=== PATIENT | female | born 1980 | race American Indian/Alaskan Native ===

== ENCOUNTER 2017-06-29 18:03 | Emergency (ER) | payer OTHER ==
[~2017-06-29] VITALS: Ht 162.6 cm; Wt 74.8 kg
[2017-06-29] MEDS ORDERED: VENTOLIN HFA18 GM INH ×2 (18:18)
[2017-06-29] MEDS ORDERED: PREDNISONE20 MG PO ×2 (19:36)
[2017-06-29] MEDS ORDERED: ZITHROMAX250 MG PO ×2 (19:36)
[2017-06-29] MEDS ORDERED: ALBUTEROL2.5 MG/3 M INH ×2 (19:36)
== END 2017-06-29 19:49 | disposition home or self-care (01) ==
LOC: ED 18:03
DX: J20.9 Acute bronchitis, unspecified (principal); J45.909 Unspecified asthma, uncomplicated; Z79.899 Other long term (current) drug therapy
CPT/HCPCS: 71020; 94640; 99283; J7512

== ENCOUNTER 2017-06-30 17:38 | Inpatient (IN) | payer OTHER ==
[~2017-06-30] VITALS: Ht 162.6 cm; Wt 82.1 kg
[~2017-06-30 17:38] MED LIST: ALBUTEROL2.5 MG/3 M INH; PREDNISONE20 MG PO; VENTOLIN HFA18 GM INH; ZITHROMAX250 MG PO
--- NOTE | 2017-06-30 22:31 | NUR ---
PT ARRIVED TO ROOM 127 AT 2105. SOB WITH EXERTION, HOWEVER PT CONTINUES TO TALK FREQUENTLY. C/O OF BURNING PAIN MIDCHEST RANGE, PAIN INCREASES WITH COUGHING, HOWEVER COUGH NO LONGER PRESENT. SYMPTOMS OF RECENT SINUS INFECTION STARTED 2-3 WEEKS AGO, WENT TO ER YESTERDAY FOR SYMPTOMS OF SOB, PRESCRIBED PREDNISONE AND AZITHROMYCIN, DID NOT START UNTIL TODAY. PT ANXIOUS, HOWEVER RESISTANT TO TAKING MORE MEDICATIONS SUCH VISTERIL, TESSALON PERLS. EXPLAINED PLAN OF CARE TO PT, ORIENTED TO ROOM/MEDICAL EQUIPMENT. PT GIVEN SANDWICH BOX, WATER, NO NAUSEA. USES CALL LIGHT APPROPRIATELY.
--- NOTE | 2017-06-30 23:41 | NUR ---
PT RELUCTANT TO TAKE LOVENOX OR TESSALON PEERLS. PROVIDED EDUCATIONAL HANDOUT ON THESE MEDICATIONS AND EXPLAINED RISK VS BENEFIT. ULTIMATELY AGREED TO TAKE LOVENOX AT THIS TIME. PT APPEARS TO BE LESS ANXIOUS AND WORK OF BREATHING LESS.
--- NOTE | 2017-07-01 03:41 | NUR ---
PT C/O OF CHEST TIGHTNESS, DRYNESS IN THROAT AREA, ANXIOUS. AGREED TO TRY PO VISTERIL. 25MG GIVEN AT 0230. PT HAS BEEN SLEEPING SINCE 0300.
--- NOTE | 2017-07-01 06:57 | NUR ---
PT UP TO BSC. FEELING SHAKY WHEN UP. WORK OF BREATHING LESS, PT APPEARS LESS ANXIOUS. MATERIALS PROVIDED RE: ASTHMA AND PNEUMOMEDIASTINUM.
--- NOTE | 2017-07-01 07:36 | NUR ---
PT ASLEEP AT THIS TIME
--- NOTE | 2017-07-01 08:29 | NUR ---
EDUCATION GIVEN ON PT AUGMENTIN AT THIS TIME. BKF HAS BEEN ORDERED FOR PT THIS AM.
--- NOTE | 2017-07-01 09:19 | NUR ---
PT UP TO THE BATHROOM THIS AM, HAS LESS SOB AND TIGHTNESS IN HER CHEST WITH AMBULATION. PT TERA-WELL. CONTIOUES TO WORK ON EATTING HER BKF AT THIS TIME. TALKS ON HER PHONE LOTS.
--- NOTE | 2017-07-01 10:12 | NUR ---
PT FAMILY INTO VISIT AT THIS TIME. PT CONTIUES TO BE VERY ANXIOUSE ABOUT ANY MEDICATION OR TREATMENT THAT HAS BEEN ODER FOR HER. PT HAS EDUCATION ON ALL MEDICATIONS THAT ARE PRESCRIBED AND TREATMENTS. BUT PT CONTIOUES TO BE RECULANTE TO TAKE OR DO THINGS.
--- NOTE | 2017-07-01 10:34 | NUR ---
pt ambulates to bathroom does well, no sob noted with this trip. pt is amble to mange cords and lines.
--- NOTE | 2017-07-01 11:39 | NUR ---
DR LANGSTON TRANSFED PT TO THE M/S UNIT THIS AM. MONITOR REMOVED FROM PT AT THIS TIME, EDUCATED PT ON WHAT THIS MEANS IN HER PROGRESSION OF CARE. PT UNDERSTOOD ALL INSTRUCTIONS. LUNCH HAS BEEN ORDER FOR PT ALSO.
--- NOTE | 2017-07-01 13:49 | NUR ---
REPORT CALLED TO M/S LAURYN GRIDER ALL QUESTIONS ANSWERED AT THIS TIME. PT TO GO OVER VIA CHAIR. PT REMAINS ON ROOM AIR AT THIS TIME.
--- NOTE | 2017-07-01 14:01 | NUR ---
received to room 108. no SOB noted at this time.
--- NOTE | 2017-07-01 14:06 | NUR ---
PT TRANSFERED VIA CHAIR TO ROOM 108 AT THIS TIME. ALL PERSOANL BELONGINGS SENT WITH PT. PT HAS BEEN ON ROOM AIR BUT DR LANGSTON OR MYSELF DID NOT TELL THE PATIENT. SHE HAD NO C/O'S OF SOB TILL THIS PLASTICS FABRICATION SUPERVISOR TOLD HER SHE WAS ON ROOM AIR.
--- NOTE | 2017-07-01 15:37 | NUR ---
PT HAD QUESTIONS ABOUT AMOUNT OF COUGHING. EDUCATED PT ON USE OF IS AND WHEN TO ASK FOR PRN COUGH RX.
--- NOTE | 2017-07-01 17:15 | NUR ---
TRANSFER FROM CCU THIS AFTERNOON. ANXIOUS AT TIMES. ASKS LOTS OF QUESTIONS AND HAS CONCERNS. NEBS Q3H. AUGMENTIN/SOLUMEDROL BID. INDEPENDENT IN ROOM. ROOM AIR. REGULAR DIET. SALINE LOCKED RH IV.
--- NOTE | 2017-07-01 19:00 | NUR ---
RECEIVED REPORT FROM RN. PATIENT RESTING COMFORTABLY IN BED, BREATHING IS EVEN AND UNLABORED. DENIES NEEDS AT THIS TIME. CALL LIGHT WITHIN REACH.
--- NOTE | 2017-07-01 20:49 | NUR ---
PATIENT RESTING COMFORTABLY IN BED, BREATHING IS EVEN AND UNLABORED. DENIES NEEDS AT THIS TIME. ASSESSMENT DONE, CALL LIGHT WITHIN REACH.
--- NOTE | 2017-07-01 21:36 | NUR ---
PATIENT TOOK SHOWER.
--- NOTE | 2017-07-01 23:39 | NUR ---
PATIENT RESTING IN BED. SHE STATES "I FEEL LIKE MY BREATHING IS GETTING A LITTLE WORSE." RT CAME TO PROVIDE BREATHING TREATMENT. PATIENT HAS LOOSE, PRODUCTIVE COUGH. ENCOURAGED PATIENT TO COUGH AND DEEP BREATHE AND ENCOURAGED FLUIDS. PATIENT STATES "CAN YOU PLEASE CHECK MY OXYGEN LEVEL AND MY TEMPERATURE? I AM FEELING FLUSHED." O2 SATURATION WAS 95% ON ROOM AIR, TEMPERATURE WAS 97.8. PROVIDED WARM TEA FOR PATIENT. SHE DENIES FURTHER NEEDS AT THIS TIME. CALL LIGHT WITHIN REACH.
--- NOTE | 2017-07-02 00:58 | NUR ---
PATIENT RESTING COMFORTABLY IN BED, BREATHING IS EVEN AND UNLABORED. CALL LIGHT WITHIN REACH.
--- NOTE | 2017-07-02 03:52 | NUR ---
PATIENT RESTING COMFORTABLY IN BED, BREATHING IS EVEN AND UNLABORED, LUNG SOUNDS ARE CLEAR. PATIENT DENIES NEEDS AT THIS TIME, REFUSING 0400 BREATHING TREATMENT. ASSESSMENT DONE, CALL LIGHT WITHIN REACH.
--- NOTE | 2017-07-02 05:23 | NUR ---
PATIENT'S NIGHT WAS UNEVENTFUL. SHE HAS BEEN RESTING COMFORTABLY IN BED THROUGHOUT SHIFT. VSS, URINE OUTPUT QS. NO COMPLAINTS OF PAIN. PATIENT ANXIOUS AT TIMES, DECREASED ANXIETY WITH REASSURANCE AND THERAPEUTIC COMMUNICATION. PATIENT HAS MINOR EXPIRATORY WHEEZING AT TIMES, RESPONDS WELL TO NEBS. PATIENT IS SALINE LOCKED, SBA TO BATHROOM. NO ACUTE CHANGES FROM BEGINNING OF SHIFT ASSESSMENT.
--- NOTE | 2017-07-02 05:53 | NUR ---
PATIENT RESTING COMFORTABLY IN BED, BREATHING EVEN AND UNLABORED. DENIES NEEDS AT THIS TIME. CALL LIGHT WITHIN REACH.
--- NOTE | 2017-07-02 07:32 | NUR ---
RECIEVED REPORT FROM KELLI GRIDER. PT A/O. ON THE PHONE WITH CHILDREN FOR PEDRO. SALINE LOCKED RIGHT HAND. NO PAIN. PERSONAL ITEMS WITHIN REACH. CALL LIGHT WITHIN REACH.
--- NOTE | 2017-07-02 07:50 | NUR ---
BROUGHT HER ICE WATER, HOT TEA, 3 KETCHUP PACKETS FOR HER BREAKFAST.
--- NOTE | 2017-07-02 08:39 | NUR ---
PT UP IN BED. SALINE LOCKED. MORNIGN MED PASS DONE. PT EXPERIENCING SOME NAUSEA. WANTS TO WAIT TO SEE IF IT PASSES. OFFERED ZOFRAN. PT ATE SOME BREAKFAST. CALL LIGHT WITHIN REACH. PERSONAL ITEMS WITHIN REACH.
--- NOTE | 2017-07-02 10:17 | NUR ---
PT STATED IT WAS HOT IN HER ROOM. SHE WANTED THE HEAT DOWN TO 70. ALSO PT STATED SHE DID NOT GET VERY MUCH SLEEP SO I LOWERED HER BLINDS FOR HER.
--- NOTE | 2017-07-02 10:17 | NUR ---
PT HAD QUESTIONS ABOUT MEDICATIONS AND INCREASE IN HEART RATE. ANSWERED ALL PT QUESTIONS ABOUT MEDICATIONS EFFECTS, AND PLAN OF CARE. PT UNDERSTANDING WELL. INFORMATION DECRESSED PT ANXIETY.
--- NOTE | 2017-07-02 11:12 | NUR ---
ROUNDED WITH DR LANGSTON. PLANS TO DISHCHARGE TODAY. NEEDS A NEBULIZE AND EDUCATION ON CHRIS TREATMENTS.
[2017-07-02] MEDS ORDERED: ALBUTEROL2.5 MG/3 M INH ×2 (11:16)
[2017-07-02] MEDS ORDERED: AMOX TR-K CLV1 EAC1 PO ×2 (11:16)
[2017-07-02] MEDS ORDERED: PREDNISONE20 MG PO ×2 (11:20)
--- NOTE | 2017-07-02 11:53 | NUR ---
PT EATING LUNCH. DC'D IV. TOLLERATED WELL. NAUSEA HAS SUBSIDED. NO SOB OR DIFFICULTY BREATHING.
--- NOTE | 2017-07-02 14:24 | EKG ---
[facility] [address] [place], [place] [address] Signed Sinus tachycardia Otherwise normal ECG No previous ECGs available Confirmed by NOHEMY LANGSTON MD ([id number]) on 07/02/2017 2:24:24 PM Electronically Signed By: NOHEMY LANGSTON MD 07/02/17 1424 PATIENT NAME: SIVA GARCÍA Electrocardiogram DATE OF : 82 PHYSICIAN: NOHEMY LANGSTON MD REPORT #: [id number] REPORT IS CONFIDENTIAL AND NOT TO BE RELEASED WITHOUT AUTHORIZATION
--- NOTE | 2017-07-02 15:01 | NUR ---
TALKED TO PT ABOUT DISCHARGE. PLAN ON ADMINISTERING NEB TREATMENT AT 1530, THEN TAXI HOME. PT DOESNT HAVE ANY MORE QUESTIONS ABOUT MEDICATIONS. FRIEND WILL PICK MEDICATION UP FROM PHARMACY BEFORE 1600.
== END 2017-07-02 16:40 | disposition home or self-care (01) | DRG 202 ==
LOC: ED 17:38 → CCU 20:58 → MS 07-01 14:00
PROVIDERS: ADMIT Internal Medicine
DX: J45.21 Mild intermittent asthma with (acute) exacerbation (principal); J96.01 Acute respiratory failure with hypoxia; J98.2 Interstitial emphysema; J01.41 Acute recurrent pansinusitis; E87.6 Hypokalemia; F41.8 Other specified anxiety disorders; D72.829 Elevated white blood cell count, unspecified
CPT/HCPCS: 71020; 71260; 80053; 84484; 85025; 85379; 93005; 93010; 94640; 96374; 96375; 99285; J1650; J2405; J2930; J3475; J7120; Q0177; Q9967

== ENCOUNTER 2017-07-06 15:29 | Emergency (ER) | payer OTHER ==
[~2017-07-06] VITALS: Ht 162.6 cm; Wt 74.8 kg
[~2017-07-06 15:29] MED LIST changes: +AMOX TR-K CLV1 EAC1 PO
--- NOTE | 2017-07-06 23:00 | EKG ---
[facility] [address] [place], [place] [address] Signed Sinus tachycardia Otherwise normal ECG When compared with ECG of 30-JUN-2017 18:57, No significant change was found Confirmed by NOHEMY LANGSTON MD ([id number]) on 07/06/2017 11:00:45 PM Electronically Signed By: NOHEMY LANGSTON MD 07/06/17 2300 PATIENT NAME: SIVA GARCÍA Electrocardiogram DATE OF : 82 PHYSICIAN: NOHEMY LANGSTON MD REPORT #: [id number] REPORT IS CONFIDENTIAL AND NOT TO BE RELEASED WITHOUT AUTHORIZATION
== END 2017-07-06 17:04 | disposition home or self-care (01) ==
LOC: ED 15:29
DX: J06.9 Acute upper respiratory infection, unspecified (principal); J98.2 Interstitial emphysema; J45.909 Unspecified asthma, uncomplicated; Z79.2 Long term (current) use of antibiotics; Z79.52 Long term (current) use of systemic steroids
CPT/HCPCS: 71020; 80053; 83735; 84484; 85025; 93005; 93010; 94640; 99284

== ENCOUNTER 2017-07-11 17:38 | Emergency (ER) | payer OTHER ==
[~2017-07-11] VITALS: Ht 162.6 cm; Wt 74.8 kg
[2017-07-11] MEDS ORDERED: COMBIVENT RESPIM4 GM INH (21:11)
[2017-07-11] MEDS ORDERED: PROVENTIL HFA6.7 GM INH (21:11)
[2017-07-11] MEDS ORDERED: LIDODERM1 EACH TOP (21:11)
[2017-07-11] MEDS ORDERED: NAPROSYN500 MG PO (21:11)
== END 2017-07-11 21:32 | disposition short-term general hospital (02) ==
LOC: ED 17:38
DX: S29.011A Strain of muscle and tendon of front wall of thorax, initial encounter (principal); J06.9 Acute upper respiratory infection, unspecified; J45.909 Unspecified asthma, uncomplicated; Z79.899 Other long term (current) drug therapy; X58.XXXA Exposure to other specified factors, initial encounter
CPT/HCPCS: 71046; 94640; 99285

== ENCOUNTER 2020-09-09 21:45 | Emergency (ER) | payer OTHER ==
[~2020-09-09] VITALS: Ht 162.6 cm; Wt 74.8 kg
[~2020-09-09 21:45] MED LIST changes: +COMBIVENT RESPIM4 GM INH; +KEFLEX500 MG PO; +LIDODERM1 EACH TOP; +NAPROSYN500 MG PO; +PROVENTIL HFA6.7 GM INH; +PYRIDIUM200 MG PO
--- NOTE | 2020-09-10 15:11 | EKG ---
[facility] [address] [place], [place] [address] Signed Sinus tachycardia Nonspecific ST abnormality Abnormal ECG When compared with ECG of 06-JUL-2017 15:36, Questionable change in QRS axis Confirmed by STEPHANIE SOLANO MD ([id number]) on 09/10/2020 3:11:15 PM Electronically Signed By: STEPHANIE SOLANO MD 09/10/20 1511 PATIENT NAME: RICKYSIVA CHANA Electrocardiogram DATE OF : 82 PHYSICIAN: STEPHANIE SOLANO MD REPORT #: [id number] REPORT IS CONFIDENTIAL AND NOT TO BE RELEASED WITHOUT AUTHORIZATION
== END 2020-09-10 02:47 | disposition home or self-care (01) ==
LOC: ED 21:45
DX: T40.7X1A Poisoning by cannabis (derivatives), accidental (unintentional), initial encounter (principal); R00.2 Palpitations; J45.909 Unspecified asthma, uncomplicated
CPT/HCPCS: 93005; 93010; 99285-25